=== PATIENT | female | born 1995 | race Caucasian/White ===

== ENCOUNTER 2017-10-04 19:14 | Emergency (ER) | payer OTHER ==
[2017-10-04 19:37] VITALS: PULSE 60
--- NOTE | 2017-10-04 20:11 | ED PDOC ---
HPI: Abdomen Time Seen by Provider: 10/04/17 19:46 Chief Complaint (Nursing): Abdominal Pain Chief Complaint (Provider): Pelvic Pain History Per: Patient History/Exam Limitations: no limitations Onset/Duration Of Symptoms: Days (x 3) Current Symptoms Are (Timing): Still Present Quality Of Discomfort: "Pain" Additional Complaint(s): 22 year old female with history of ruptured ovarian cyst presents to the ED intermittent, non-radiating, right sided pelvic pain for the last 3 days that is becoming progressively worse. Pain worsens with certain movements as well as walking. Patient reports she had similar symptoms when an ovarian cyst ruptured in 2016. Her last NMP was 2 weeks ago. She has had intermittent spotting since then. Patient is taking OCP and took Tylenol with minimal relief. She denies nausea, vomiting, diarrhea, constipation, urinary symptoms, fever, chills and decreased appetite. PMD: none (she is from the ) Past Medical History Reviewed: Historical Data, Nursing Documentation, Vital Signs Vital Signs: Last Vital Signs Temp 98.5 F 10/05/17 00:36 Pulse 60 10/05/17 00:36 Resp 17 10/05/17 00:36 BP 119/66 10/05/17 00:36 Pulse Ox 97 10/05/17 00:36 - Medical History Other PMH: ovarian cyst - Surgical History Surgical History: No Surg Hx - Family History Family History: States: Unknown Family Hx - Social History Current smoker - smoking cessation education provided: No Alcohol: None Drugs: Denies - Home Medications Home Medications: Ambulatory Orders Medication Instructions Recorded Ibuprofen [Motrin Tab] 600 mg PO Q8 PRN #30 tab 10/05/17 - Allergies Allergies/Adverse Reactions: Allergies Allergy/AdvReac Type Severity Reaction Status Date / Time No Known Allergies Allergy Verified 10/04/17 19:33 Review of Systems ROS Statement: Except As Marked, All Systems Reviewed And Found Negative (and as per HPI) Gastrointestinal: Negative for: Nausea, Vomiting, Diarrhea Genitourinary Female: Positive for: Vaginal Bleeding (spotting), Pelvic Pain. Negative for: Dysuria, Frequency, Incontinence, Hematuria Physical Exam - Reviewed Nursing Documentation Reviewed: Yes Vital Signs Reviewed: Yes - Physical Exam Appears: Positive for: Non-toxic, In Acute Distress (mild painful) Head Exam: Positive for: ATRAUMATIC, NORMAL INSPECTION, NORMOCEPHALIC Skin: Positive for: Warm, Dry Eye Exam: Positive for: EOMI, PERRL ENT: Negative for: Pharyngeal Erythema, Tonsillar Exudate Neck: Positive for: Painless ROM, Supple Cardiovascular/Chest: Positive for: Regular Rate, Rhythm. Negative for: Murmur Respiratory: Positive for: Normal Breath Sounds. Negative for: Respiratory Distress Gastrointestinal/Abdominal: Positive for: Soft, Tenderness (RLQ tenderness and McBurney's point tenderness), Other ((+)PSOAS and obturators signs). Negative for: Distended, Guarding, Rebound Back: Positive for: Normal Inspection. Negative for: L CVA Tenderness, R CVA Tenderness, Decreased ROM Extremity: Positive for: Normal ROM. Negative for: Deformity Lymphatic: Negative for: Adenopathy Neurologic/Psych: Positive for: Alert. Negative for: Motor/Sensory Deficits - Laboratory Results Result Diagrams: 10/04/17 21:36 10/04/17 21:36 - ECG O2 Sat by Pulse Oximetry: 100 (RA) Pulse Ox Interpretation: Normal Medical Decision Making Medical Decision Makin:52 Impression: RLQ pain Diffenrtial diagnoses include but are not limited to: ovarian cyst rupture or torsion, appendicitis, renal colic, cysitis, PID Initial Plan: --Urine preg --Urine dip --Motrin 600 mg PO --Transvag US Time: 20:48 Transvag US FINDINGS: Uterus/cervix: Retroverted uterus. No myometrial mass. Endometrium: 0.7 cm in thickness. Right ovary: No mass. Normal flow. Left ovary: No mass. Normal flow. Free fluid: No significant free fluid. IMPRESSION: 1. No acute findings. 2. Non-acute findings are described as above. Discussed results with patient. Work up initiated to rule out appendicitis. Time; 21:07 --abd pelvis CT --CBC --PTT --Prothrombin --Omnipaque 50 ml PO --dextrose 5% in NS IV 100 mls/hr EXAM: CT Abdomen and Pelvis With Intravenous Contrast EXAM DATE/TIME: 10/04/2017 9:06 PM CLINICAL HISTORY: 22 years old, female; Pain; Abdominal pain; Localized; Right lower quadrant (rlq ); Additional info: Rlq pain R/O appy TECHNIQUE: Axial computed tomography images of the abdomen and pelvis with intravenous contrast. All CT scans at this facility use one or more dose reduction techniques, viz.: automated exposure control; ma/kV adjustment per patient size (including targeted exams where dose is matched to indication; i.e. head); or iterative reconstruction technique. CONTRAST: 90 ml of [id number] administered intravenously. COMPARISON: US - TRANSVAGINAL 2017-10-04 20:12 FINDINGS: Lower thorax: 3.1 cm subpleural bulla in the posterior right lower lobe. ABDOMEN: Liver: Normal. No mass. Gallbladder and bile ducts: Normal. No calcified stones. No ductal dilation. Pancreas: Normal. No ductal dilation. Spleen: Normal. No splenomegaly. Adrenals: Normal. No mass. Kidneys and ureters: Normal. No hydronephrosis. Stomach and bowel: Mild stool throughout the colon. Appendix: There are no changes of appendicitis. A normal appendix is not seen. PELVIS: Bladder: Unremarkable as visualized. Reproductive: The ovaries are within normal limits although the right is slightly larger than the left. ABDOMEN and PELVIS: Intraperitoneal space: Trace fluid in the cul-de-sac which is physiologic in amount. Bones/joints: No acute fracture. No dislocation. Soft tissues: Unremarkable. Vasculature: Normal. No abdominal aortic aneurysm. Lymph nodes: Normal. No enlarged lymph nodes. IMPRESSION: 1. 3.1 cm subpleural bulla in the posterior right lower lobe. 2. Otherwise negative CT abdomen/pelvis.There are no changes of appendicitis. The appendix is not seen, however. Thank you for allowing us to participate in the care of your patient. Dictated and Authenticated by: Keshav Siu MD 10/05/2017 12:01 AM Eastern Time ([place] & [place]) On reeval pt is stable. No worsening of symptoms. DW pt findings and plan of care and need for follow up concerning pleural bulla as well as reeval for undifferentiated abdominal pain. Pt at this time has no respiratory symptoms or pulmonary clinical findings. Stable for DC. Symptomatic treatment. Scribe Attestation: Documented by Brittani Garsia, acting as a scribe for Pearl Reed MD Provider Scribe Attestation: All medical record entries made by the Scribe were at my direction and personally dictated by me. I have reviewed the chart and agree that the record accurately reflects my personal performance of the history, physical exam, medical decision making, and the department course for this patient. I have also personally directed, reviewed, and agree with the discharge instructions and disposition. Disposition - Clinical Impression Clinical Impression: Abdominal pain Counseled Patient/Family Regarding: Studies Performed, Diagnosis - Disposition Referrals: [facility] [Outside] [facility] [Outside] Praneeth Mobley DO [Staff Provider] - Disposition: Routine/Home Disposition Time: 00:15 Condition: STABLE Additional Instructions: FOLLOW UP WITH [employer] OR YOUR OWN PMD IN ABOUT A WEEK FOR REEVALUATION PLEASE ALSO FOLLOW UP WITH GYNECOLOGY WITHIN A WEEK FOR FURTHER EVALUATION OF IRREGULAR BLEEDING. Prescriptions: Ibuprofen [Motrin Tab] 600 mg PO Q8 PRN #30 tab PRN Reason: Pain, Moderate (4-7) Instructions: Acute Abdomen (Belly Pain) Forms: [facility] (Cro[place]ian), [facility] ED School/Work Excuse
[2017-10-04] MEDS ORDERED: Iohexol 240 (50 ml) PO ONE (21:06)
[2017-10-04] MEDS ORDERED: Sodium Chloride 0.9% 1,000 ML IV STA (21:07)
[2017-10-04] MEDS ORDERED: Iohexol 240 (50 ml) ONE (21:19)
[2017-10-04 21:43] LABS: BASO % 0.8 % (0.0-2.0); EOS # 0.1 K/uL (0.0-0.7); EOS % 1.1 % (0.0-4.0); HEMOGLOBIN 14.6 g/dL (12.0-16.0); LYMPH # 2.3 K/uL (1.0-4.3); LYMPH % 43.3 % (20.0-40.0); MEAN CELL VOLUME 91.2 fl (81.0-99.0); MEAN CORPUSCULAR HEMOGLOBIN 30.5 pg (27.0-31.0); MEAN CORPUSCULAR HGB CONC 33.5 g/dL (33.0-37.0); MEAN PLATELET VOLUME 9.3 fl (7.2-11.7); MONO # 0.3 K/uL (0.0-0.8); MONO % 5.6 % (0.0-10.0); NEUT # 2.6 K/uL (1.8-7.0); NEUT % 49.2 % (50.0-75.0); RBC 4.77 Mil/uL (3.80-5.20); RED CELL DISTRIBUTION WIDTH 13.9 % (11.5-14.5); WHITE BLOOD COUNT 5.4 K/uL (4.8-10.8)
[2017-10-04 21:50] LABS: ALB/GLOB RATIO 1.2 (1.0-2.1); ALBUMIN 4.3 g/dL (3.5-5.0); ALT/SGPT 28 U/L (9-52); AST/SGOT 36 U/L (14-36); BLOOD UREA NITROGEN 9 mg/dl (7-17); CALCIUM 9.4 mg/dL (8.4-10.2); GFR AFRICAN-AMERICAN > 60; GFR NON-AFRICAN AMERICAN > 60
[2017-10-04 21:51] LABS: INR 0.9 (0.9-1.2); PARTIAL THROMBOPLASTIN TIME 31.3 Seconds (25.6-37.1); PROTHROMBIN TIME 10.1 Seconds (9.8-13.1)
[2017-10-04] MEDS ORDERED: Iohexol 300 100 ML IJ ONE (23:11)
[2017-10-04] MEDS ORDERED: Sodium Chloride 0.9% 50 ML IV ONE (23:11)
[2017-10-05 00:37] VITALS: BP 119/66; RESP 17; TEMP 98.5
--- NOTE | 2017-10-05 11:02 | CT ---
PROCEDURE: CT Abdomen and Pelvis with contrast HISTORY: RLQ pain r/o appy COMPARISON: None. TECHNIQUE: CT scan of the abdomen and pelvis was performed after administration of intravenous contrast. Oral contrast was administered. Coronal and sagittal reformatted images were obtained. Contrast dose: 90 mL Omnipaque 300 Radiation dose: Total exam DLP = 364.21 mGy-cm. This CT exam was performed using one or more of the following dose reduction techniques: Automated exposure control, adjustment of the mA and/or kV according to patient size, and/or use of iterative reconstruction technique. FINDINGS: LOWER THORAX: There is a bulla in the right lower lobe, otherwise the visualized lungs are clear. LIVER: Mild hepatomegaly and diffuse fatty infiltration in the liver. No gross lesion or ductal dilatation. GALLBLADDER AND BILE DUCTS: No calcified gallstones. PANCREAS: Normal in size with homogeneous enhancement. No gross lesion or ductal dilatation. SPLEEN: Normal in size and appearance. ADRENALS: No discrete nodule. KIDNEYS AND URETERS: Normal in size with homogeneous enhancement. No hydronephrosis. No solid mass. VASCULATURE: No aortic aneurysm. BOWEL: The small bowel loops are normal in caliber. There is large amount of stool in the colon. No obstruction. No gross mural thickening. APPENDIX: No evidence of acute appendicitis. PERITONEUM: No free fluid. No free air. LYMPH NODES: No enlarged lymph nodes. BLADDER: Unremarkable. REPRODUCTIVE: Unremarkable. BONES: No acute fracture. OTHER FINDINGS: None. IMPRESSION: 1. Large bulla in the posterior right lower lobe. 2. No acute abdominal or pelvic abnormality. Constipation A preliminary report was provided by [employer].
--- NOTE | 2017-10-05 12:17 | US ---
HISTORY: RIGHT pelvic pain h/o ovarian cyst. Menstrual status: LMP 09/18/2017. Irregular cycles Negative urine test COMPARISON: October 04, 2017. CT abdomen and pelvis TECHNIQUE: Transvaginal only. Real -time technique with 2D, duplex and color Doppler FINDINGS: UTERUS: Measures 3.8 x 4 x 6.6 cm. Normal in size and appearance. No fibroid or other mass lesion seen. ENDOMETRIUM: Measures 7.3 mm in diameter. No ultrasound findings to suggest gestational sac, fluid, debris, mass or polyp or other pathologic process within the endometrium. CERVIX: No cervical abnormality identified. RIGHT OVARY: Measures 2.4 x 1 x 3.1 cm. No solid mass. Normal flow. LEFT OVARY: Measures 1.1 x 2.3 x 2.3 cm. No solid mass. Normal flow. Multiple subcentimeter follicles. Go FREE FLUID: No significant free fluid noted. OTHER FINDINGS: None. IMPRESSION: No significant or acute findings to account for/ related to the clinical presentation. Additional benign and/or incidental findings described above. Concordant results (preliminary interpretation) provided by [facility]. Procedure Completed: 20:20 Preliminary ([facility]) Report: Dictated and Authenticated: 20:48 Final Interpretation: 12:15 October 05, 2017.
[2017-10-06 20:19] VITALS: O2SAT 100
== END 2017-10-05 00:49 | disposition home or self-care (01) ==
LOC: H.ER 19:14
DX: R10.31 Right lower quadrant pain (principal); N92.6 Irregular menstruation, unspecified
CPT/HCPCS: 74177; 76830; 80053; 81025; 85025; 85610; 85730; 99283; J7030; Q9966; Q9967